=== PATIENT | female | born 1995 | race Caucasian/White ===

== ENCOUNTER 2018-08-26 17:24 | Emergency (ER) | payer OTHER ==
[~2018-08-26] VITALS: Ht 165.1 cm; Wt 93.6 kg
[2018-08-26] MEDS ORDERED: KETOROLAC TROMETHAMINE 10 MG TABLET PO ONE (18:00)
[2018-08-26 20:43] VITALS: BP 135/84
== END 2018-08-26 20:53 | disposition home or self-care (01) ==
LOC: EMS 17:25
DX: S93.401A Sprain of unspecified ligament of right ankle, initial encounter (principal); S80.811A Abrasion, right lower leg, initial encounter; V98.8XXA Other specified transport accidents, initial encounter; Y93.89 Activity, other specified; Y92.488 Other paved roadways as the place of occurrence of the external cause; Y99.8 Other external cause status
CPT/HCPCS: 29515; 99284